=== PATIENT | female | born 1975 | race Caucasian/White ===

== ENCOUNTER → 2020-01-04 08:30 | Outpatient (CLI) | payer OTHER, SELFPAY ==
--- NOTE | ~2020-01-04 | US_ITS ---
US breast LT complete 01/04/2020 09:05 Indication: Follow-up left breast masses Procedure: High-resolution ultrasound of the left breast Comparison: 07/16/2019 Findings: There are multiple simple and complicated cysts of the left breast scattered throughout the breast. At 2:00, 5 cm from the nipple, there is an oval circumscribed hypoechoic mass measuring 9 x 8 x 5 mm without posterior features, slightly larger than on prior study. This is likely benign, alth ough continued six-month follow-up recommended. At 6:00, 3 cm from the nipple there is an oval circum scribed hypoechoic mass with posterior acoustic enhancement. This mass is stable measuring 8 x 8 x 5 mm Impression: 1: Probable benign left breast mass at 2:00, 5 cm from the nipple. Multiple additional simple and com plicated cyst are present throughout the left breast. BI-RADS CATEGORY 3-PROBABLY BENIGN FINDING RECOMMENDATION: Six-month follow-up diagnostic bilateral mammogram and targeted left breast ultrasoun d recommended. Reviewed, dictated and finalized at location A. Impression: 1: Probable benign left breast mass at 2:00, 5 cm from the nipple. Multiple add itional simple and complicated cyst are present throughout the left breast. BI-RADS CATEGORY 3-PROBABLY BENIGN FINDING RECOMMENDATION: Six-month follow-up diagnostic bilateral mammogram and targeted left breast ultrasound recommended.
== END ==
PROVIDERS: Visit Provider Advanced Practice Midwife
DX: N60.09 Solitary cyst of unspecified breast (principal); R92.8 Other abnormal and inconclusive findings on diagnostic imaging of breast
CPT/HCPCS: 76641

== ENCOUNTER → 2020-06-24 08:01 | Outpatient (CLI) | payer OTHER, SELFPAY ==
--- NOTE | ~2020-06-24 | MMUS_ITS ---
EXAMINATION: MM diagnostic [facility] BI w markie, US breast LT limited HISTORY: Follow-up left breast mass TECHNIQUE: Additional 3-D tomosynthesis images of the breasts were performed and synthetic 2-D images were generated. CAD analysis was submitted and interpreted. High resolution left breast ultrasound w as performed. COMPARISON: Comparison to multiple prior studies sequentially, with oldest reviewed study dated 09/20. BREAST PARENCHYMAL COMPOSITION: The breasts are heterogenously dense, which may obscure small masses. FINDINGS: MAMMOGRAPHIC FINDINGS: There are multiple masses in the left breast, largest measuring 3.4 cm. These are partially secured b y dense fibroglandular tissue. No mammographic evidence for malignancy in the right breast. ULTRASOUND: Left breast ultrasound: At 2:00, 1 cm from the nipple, there is a 3.3 cm complicated cyst corresponding to the dominant mass seen on mammogram. At 2:00, 5 cm from the nipple there is an oval circumscribed hypoechoic mass measu ring 8 mm. No internal vascularity or posterior features. Parallel orientation. This mass is likely b enign fibroadenoma or complicated cyst. No suspicious masses to suggest malignancy. IMPRESSION: 1. No evidence for malignancy in either breast. Benign findings. 2. Routine yearly screening mammogram and regular clinical breast examination are recommended. BI-RADS Category 2: Benign finding(s). Reviewed, dictated and finalized at location A. IMPRESSION: 1. No evidence for malignancy in either breast. Benign findings. 2. Routine yearly screening mammogram and regular clinical breast examination a re recommended. BI-RADS Category 2: Benign finding(s).
== END ==
PROVIDERS: Visit Provider Advanced Practice Midwife
DX: R92.8 Other abnormal and inconclusive findings on diagnostic imaging of breast (principal)
CPT/HCPCS: 76642; 77062; 77066; G0279

== ENCOUNTER → 2021-07-12 16:51 | Outpatient (CLI) | payer OTHER, SELFPAY ==
--- NOTE | ~2021-07-12 | MM_ITS ---
EXAMINATION: MM screening [facility] BI w markie HISTORY: Screening mammogram TECHNIQUE: Craniocaudal and mediolateral oblique 3-D tomosynthesis images were obtained and synthetic 2-D images were generated. Bilateral rotated lateral cc views. CAD analysis was submitted and interp reted. COMPARISON: 06/24/2020 bilateral diagnostic digital mammogram and limited left breast ultrasound examin ation 01/04/2020 left complete breast ultrasound examination 07/16/2019 complete left breast ultrasound 07/06/2019, 10/03/2017 bilateral digital screening mammogram examinations BREAST PARENCHYMAL COMPOSITION: The breasts are heterogeneously dense, which may obscure small masses . FINDINGS: There is a 7.8 mm rounded circumscribed opacity with halo sign in the inner aspect of the m id inner left breast (craniocaudal Tomosynthesis image 28/65). Is most consistent with benign process , likely a cyst. Occasional punctate benign calcifications. There is no evidence of suspicious mass, calcification, or architectural distortion to suggest malig swetha in either breast. There has been no suspicious interval change. IMPRESSION: 1. No mammographic evidence of malignancy. 2. Recommend routine screening mammography in one year. BI-RADS Category 2: Benign finding(s). Reviewed, dictated and finalized at location A.
== END ==
PROVIDERS: Visit Provider Nurse Practitioner Obstetrics & Gynecology
DX: Z12.31 Encounter for screening mammogram for malignant neoplasm of breast (principal)
CPT/HCPCS: 77063; 77067

== ENCOUNTER → 2022-05-17 12:41 | Outpatient (CLI) | payer OTHER, SELFPAY ==
--- NOTE | ~2022-05-17 | US_ITS ---
EXAMINATION: US pelvic complete w TV DATE: 05/17/2022 13:07 INDICATION: Menorrhagia Comparison:No prior studies for comparison. TECHNIQUE: Multiple transabdominal and endovaginal sonographic images of the pelvis performed. FINDINGS: The uterus measures 9 x 4.7 x 5.5 cm. There are small uterine fibroids, largest measuring 1 .5 cm. The endometrial complex measures 6 mm. The right ovary measures 1.3 x 1.8 x 1.4 cm and the left ovary measures 1.6 x 1.8 x 1.7 cm. There ar e small follicles in each ovary. Normal doppler signal in both ovaries. There is no free fluid in the pelvis. There are no abnormal masses seen on either side. IMPRESSION: 1. Small uterine fibroids, largest located anteriorly measuring 1.5 cm maximum dimension. Reviewed, dictated and finalized at location A.
== END ==
PROVIDERS: PCP Family Medicine; Visit Provider Obstetrics & Gynecology
DX: N92.0 Excessive and frequent menstruation with regular cycle (principal); D25.9 Leiomyoma of uterus, unspecified
CPT/HCPCS: 76830; 76856

== ENCOUNTER → 2022-08-18 09:45 | Outpatient (CLI) | payer OTHER, SELFPAY ==
--- NOTE | ~2022-08-18 | MM_ITS ---
EXAMINATION: MM screening [facility] BI w markie HISTORY: Screening TECHNIQUE: Craniocaudal and mediolateral oblique 3-D tomosynthesis images were obtained and synthetic 2-D images were generated. CAD analysis was submitted and interpreted. COMPARISON: Comparison to multiple prior studies sequentially, with oldest reviewed study dated 09/20. BREAST PARENCHYMAL COMPOSITION: The breasts are heterogeneously dense, which may obscure small masses FINDINGS: Left breast masses are diminished in size compared with prior study. These were previously characterized as benign on prior ultrasound. There is no evidence of suspicious mass, calcification, or architectural distortion to suggest malignancy in either breast. There has been no suspicious inte rval change. IMPRESSION: 1. No mammographic evidence of malignancy. 2. Recommend routine screening mammography in one year. BI-RADS Category 2: Benign finding(s). Reviewed, dictated and finalized at location A.
== END ==
PROVIDERS: PCP Family Medicine; Visit Provider Obstetrics & Gynecology
DX: Z12.31 Encounter for screening mammogram for malignant neoplasm of breast (principal)
CPT/HCPCS: 77063; 77067

== ENCOUNTER → 2023-09-07 09:20 | Outpatient (CLI) | payer OTHER, SELFPAY ==
--- NOTE | ~2023-09-07 | MM_ITS ---
EXAMINATION: MM screening [facility] BI w markie HISTORY: Screening mammogram TECHNIQUE: Craniocaudal and mediolateral oblique 3-D tomosynthesis images were obtained and synthetic 2-D images were generated. Bilateral rotated lateral CC views. Bilateral rotated lateral CC views. C AD analysis was submitted and interpreted. COMPARISON: 08/18/2022, 07/12/2021 bilateral screening mammogram examinations 06/24/2020 diagnostic bilateral mammogram and limited left breast ultrasound 01/04/2020 complete left breast ultrasound 07/16/2019 bilateral complete breast ultrasound 07/06/2019 bilateral screening mammogram BREAST PARENCHYMAL COMPOSITION: The breasts are heterogeneously dense, which may obscure small masses . FINDINGS: There is some indeterminate microcalcifications on the right. Possible bilateral breast masses. Bilateral diagnostic mammography is recommended, with ultrasound if required. IMPRESSION: 1. Bilateral possible breast masses Indeterminate microcalcifications on the right 2. Bilateral diagnostic mammography is recommended, with ultrasound if required BI-RADS Category 0: Incomplete: Needs additional imaging evaluation. Reviewed, dictated and finalized at location A. [employer] AIDE
== END ==
PROVIDERS: PCP Obstetrics & Gynecology; Visit Provider Obstetrics & Gynecology
DX: Z12.31 Encounter for screening mammogram for malignant neoplasm of breast (principal); R92.8 Other abnormal and inconclusive findings on diagnostic imaging of breast
CPT/HCPCS: 77063; 77067

== ENCOUNTER → 2023-10-03 07:52 | Outpatient (CLI) | payer OTHER, SELFPAY ==
--- NOTE | ~2023-10-03 | MMUS_ITS ---
EXAMINATION: MM diagnostic [facility] BI w markie, US breast BI complete HISTORY: Follow-up bilateral breast asymmetries TECHNIQUE: Additional 3-D tomosynthesis images of the breasts were performed and synthetic 2-D images were generated. CAD analysis was submitted and interpreted. High resolution bilateral complete breas t ultrasound was performed. COMPARISON: Comparison to multiple prior studies sequentially, with oldest reviewed study dated 01/2020. BREAST PARENCHYMAL COMPOSITION: The breasts are heterogeneously dense, which may obscure small masses FINDINGS: MAMMOGRAPHIC FINDINGS: There are multiple small masses most of which are low density and at least partially obscured by over lying dense fibroglandular tissue. There are no suspicious calcifications or architectural distortion . ULTRASOUND: Complete bilateral US of all 4 quadrants of the breasts and retroareolar region was reviewed. Right breast: There are multiple simple cysts of the right breast. At 12:00, 2 cm from the nipple the re is an oval circumscribed parallel oriented hypoechoic mass measuring 5 mm with subtle posterior ac oustic enhancement. At 7:00, 3 cm from the nipple, there is a slightly irregular hypoechoic 4 mm mass without posterior features. There is parallel orientation. At 7:00, 3 cm from the nipple there is a round 3 mm hypoechoic mass with circumscribed margins, no posterior features and no internal vascular ity. At 10:00, 4 cm from the nipple there is an oval hypoechoic 6 mm mass with parallel orientation, low level internal echoes and some slightly irregular margins, most likely complicated cysts, though follow-up is recommended. Left breast: Multiple simple and minimally complicated cyst of the left breast. At 2:00, 2 cm from th e nipple there is an oval circumscribed parallel oriented hypoechoic 5 mm mass without posterior feat ures. At 4:00, 3 cm from the nipple, there is a partially cystic 9 mm mass with hypoechoic area inter jace, most likely complicated cysts. At 8:00, 5 cm from the nipple, there is a round hypoechoic mass measuring 6 mm with low-level internal echoes. At 10:00, 5 cm from the nipple, there is a hypoechoic 9 mm mass with low level internal echoes, posterior acoustic enhancement. At 10:00, 5 cm from the ni pple there is an oval hypoechoic 5 mm mass with slightly irregular margins, some areas of heterogeneo us hypoechoic internal echotexture. IMPRESSION: 1. Probable benign bilateral breast masses described above. 2. Recommend 6 month follow-up limited bilateral breast ultrasound. BI-RADS category 3, probably benign findings. Reviewed, dictated and finalized at location A. BUFFER IMPRESSION: 1. Probable benign bilateral breast masses described above. 2. Recommend 6 month follow-up limited bilateral breast ultrasound. BI-RADS category 3, probably benign findings.
== END ==
PROVIDERS: PCP Obstetrics & Gynecology; Visit Provider Obstetrics & Gynecology
DX: R92.8 Other abnormal and inconclusive findings on diagnostic imaging of breast (principal)
CPT/HCPCS: 76641; 77062; 77066; G0279

== ENCOUNTER 2024-06-26 08:16 | Outpatient (CLI) | payer OTHER, SELFPAY ==
--- NOTE | ~2024-06-26 | US_ITS ---
US breast BI limited 06/26/2024 09:08 Indication: Probable benign bilateral breast masses by prior examination. Procedure: High-resolution Limited ultrasound of the right and left breasts Comparison: 10/03/2023 Findings: There are multiple simple and complicated cysts of both breasts. Right breast: At 12:00, 2 cm from the nipple there is an oval circumscribed parallel oriented 8mm mas s with low-level internal echoes, posterior enhancement and no internal vascularity, without signific ant change from prior examination, consistent with complicated cysts. At 7:00, 3 cm from the nipple t here is an oval hypoechoic 3 mm mass which is stable. No internal vascularity or posterior features, consistent with complicated cysts. Left breast: At 10:00, 5 cm from the nipple there is a round 8 mm cyst without posterior features, st able. Also at 10:00, 5 cm from the nipple there is an oval hypoechoic 7 mm mass with low level international bank manager al echoes, no posterior features or internal vascularity, likely benign. This has changed slightly in morphology compared with prior examination. Impression: 1: Slight enlargement and change in morphology of left breast mass at 10:00, 5 cm from the nipple, li chloe benign. Remainder of the masses are stable and are consistent with benign masses. BI-RADS CATEGORY 3-PROBABLY BENIGN FINDING RECOMMENDATION: 6 month follow-up Limited left breast ultrasound recommended. Reviewed, dictated and finalized at location B. Impression: 1: Slight enlargement and change in morphology of left breast mass at 10:00, 5 cm from the nipple, likely benign. Remainder of the masses are stable and are c onsistent with benign masses. BI-RADS CATEGORY 3-PROBABLY BENIGN FINDING RECOMMENDATION: 6 month follow-up Limited left breast ultrasound recommended.
== END 2024-06-26 08:17 | disposition home or self-care (01) ==
PROVIDERS: PCP Family Medicine; Visit Provider Obstetrics & Gynecology
DX: R92.8 Other abnormal and inconclusive findings on diagnostic imaging of breast (principal)
CPT/HCPCS: 76642

== ENCOUNTER 2024-11-10 16:19 | Outpatient (CLI) | payer OTHER, SELFPAY ==
--- NOTE | ~2024-11-10 | MM_ITS ---
EXAMINATION: MM screening [facility] BI w markie HISTORY: Screening TECHNIQUE: Craniocaudal and mediolateral oblique 3-D tomosynthesis images were obtained and synthetic 2-D images were generated. CAD analysis was submitted and interpreted. COMPARISON: Comparison to multiple prior studies sequentially, with oldest reviewed study dated 07/06. BREAST PARENCHYMAL COMPOSITION: Dense: The breasts are heterogeneously dense, which may obscure small masses FINDINGS: There are obscured masses in both breasts, best seen on tomographic images. There are no paige spicious calcifications or architectural distortion. IMPRESSION: 1. Bilateral masses obscured by fibroglandular content. 2. Additional mammographic views and possible breast ultrasound are recommended. BI-RADS Category 0: Incomplete: Needs additional imaging evaluation. Reviewed, dictated and finalized at location A. [employer] IMPRESSION: 1. Bilateral masses obscured by fibroglandular content. 2. Additional mammographic views and possible breast ultrasound are recommended . BI-RADS Category 0: Incomplete: Needs additional imaging evaluation.
== END 2024-11-10 16:20 | disposition home or self-care (01) ==
LOC: MICIMG 16:20
PROVIDERS: PCP Family Medicine; Visit Provider Obstetrics & Gynecology
DX: Z12.31 Encounter for screening mammogram for malignant neoplasm of breast (principal); R92.8 Other abnormal and inconclusive findings on diagnostic imaging of breast
CPT/HCPCS: 77063; 77067

== ENCOUNTER 2024-12-21 08:26 | Outpatient (CLI) | payer OTHER, SELFPAY | END 2024-12-21 08:27 | disposition home or self-care (01) | LOC: MICIMG 08:27 | PROVIDERS: PCP Family Medicine; Visit Provider Obstetrics & Gynecology | DX: R92.8 Other abnormal and inconclusive findings on diagnostic imaging of breast (principal) | CPT/HCPCS: 76642; 77062; 77066; G0279 ==

== ENCOUNTER 2025-06-23 08:18 | Outpatient (CLI) | payer OTHER, SELFPAY ==
--- NOTE | ~2025-06-23 | US_ITS ---
Clinical history:Multiple probably benign subcentimeter breast lesions. Six- month follow-up breast ultrasound EXAM:Ultrasound breast bilateral limited TECHNIQUE:Multiple static grayscale images and color Doppler images were obtained of the right breast at the 6:00 position, left breast at the 8, 11 and 12:00 positions. Comparisons:Breast ultrasounds from 12/21/2024, 06/26/2024 and 10/03/2023; mammograms from 12/21/2024 and 11/10/2024 FINDINGS: There is a 4 x 4 x 4 mm hypoechoic cyst versus solid mass in the right breast at 6:00 position 3 cm from the nipple. Margins are well-circumscribed. No internal color Doppler flow. No posterior acoustic shadowing. The finding is similar to the study from 12/21/2024. The finding is probably benign. There is a 6 x 4 x 4 mm hypoechoic cyst versus solid mass in the left breast at the 8:00 position 3 cm from the nipple. Margins are partially circumscribed. No internal color Doppler flow. No posterior acoustic shadowing. The finding is similar to the study from 12/21/2024. The finding is probably benign. There is an 8 x 7 x 7 mm hypoechoic cyst versus solid mass in the left breast at 11:00 position 3 cm from the nipple middle depth. Margins are partially circumscribed. No internal color Doppler flow. No postacoustic shadowing. The finding is similar to the study from 12/21/2024. The finding is probably benign. There is a 5 x 6 x 5 mm hypoechoic mass in the left breast at the 12:00 position in the retroareolar region. Posterior depth. Margins are partially circumscribed. No internal color Doppler flow. No posterior acoustic shadowing. The finding is similar to the study from 12/21/2024. The finding is probably benign. IMPRESSION: 1. Multiple probably benign subcentimeter breast lesions as detailed above. A six-month follow-up diagnostic breast ultrasound is recommended. BI-RADS 3-probably benign Reviewed, dictated and finalized at location Q. IMPRESSION: 1. Multiple probably benign subcentimeter breast lesions as detailed above. A s ix-month follow-up diagnostic breast ultrasound is recommended. BI-RADS 3-probably benign
== END 2025-06-23 08:19 | disposition home or self-care (01) ==
PROVIDERS: PCP Family Medicine; Visit Provider Obstetrics & Gynecology
DX: R92.8 Other abnormal and inconclusive findings on diagnostic imaging of breast (principal)
CPT/HCPCS: 76642